=== PATIENT | male | born 1935 | race Caucasian/White ===

== ENCOUNTER → 2016-05-20 | Outpatient (CLI) | payer MEDICARE ==
[~2016-05-20] MED LIST: AMLODIPINE BESY10 MG PO; CETIRIZINE HCL10 MG PO; CIPRO PO; FLOMAX0.4 M1 PO; FLONASE 0.05% N16 GM; HYTRIN1 M1 PO; LISINOPRIL PO; MOBIC15 MG PO; PROTONIX PO; ULTRAM PO
--- NOTE | ~2016-05-20 | CR7 ---
[facility] A Service of [facility] RADIOLOGY TEXT RESULTS PATIENT: DEBBY VIEIRA JR LOCATION: [facility] : 35 UNIT #: [id number] AGE: [address]: Deon Jacinto MD SEX: M ORDER DR: [id number] [facility] [address] [place], [place] [address] [id number] O MR#: [id number] Acc #: [id number] NAME: DEBBY VIEIRA : 1935 SEX: M STUDY DATE/TIME: 05/20/2016 11:24 UNIT: [facility] ROOM: STUDY DESCRIPTION: CR Abdomen Single AP View Attending Physician: Deon Jacinto M.D. Referring Physician: Deon Jacinto M.D. Ordering Physician: Deon Jacinto M.D. Primary Care Physician: Tracy Elizabeth A.P.R.N. MEDICAL IMAGING REPORT This report is preliminary unless electronic signature is present EXAM AP abdomen DATE 05/20/2016 at 11:24 HISTORY Bilateral kidney stones and flank pain for 2 months. Previous lithotripsy. COMPARISON AP abdomen 04/14/[address] abdomen and pelvis without and with contrast 02/17/2016. FINDINGS Multiple (approximately 5) clustered calculi are seen in the vicinity of the right lower renal pole, varying in size between 4-9 mm. These are not thought to be significantly changed from 04/14/2016. No definite left kidney stone or bilateral ureteral stone is identified. Surgical clips in the pelvis to the right of midline. Degenerative disc, facet and endplate changes in the lower lumbar spine. Nonobstructive bowel gas pattern with [id number] ascending colonic stool burden. Cholecystectomy clips are in place. IMPRESSION 1. Multiple stones in the right lower renal pole are not thought to be significantly changed from 04/14/2016. No ureteral calculi are identified. Dictated by... Cecilia Sandy M.D. THIS IS AN ELECTRONICALLY VERIFIED REPORT [facility] A Service of [facility] RADIOLOGY TEXT RESULTS PATIENT: DEBBY VIEIRA JR [id number] : 35 UNIT #: [id number] AGE: [address]: Deon Jacinto MD SEX: M ORDER DR: Cecilia Sandy M.D. at 05/21/2016 9:14 AM SHMUEL/enedina TD: 05/20/2016 19:30 JOB #: [id number] MEDICAL IMAGING REPORT COPY
== END | disposition home or self-care (01) ==
LOC: CRAD 11:09
DX: N20.0 Calculus of kidney (principal)
CPT/HCPCS: 74000

== ENCOUNTER → 2016-07-08 | Outpatient (CLI) | payer MEDICARE ==
--- NOTE | ~2016-07-08 | CR7 ---
[facility] A Service of [facility] RADIOLOGY TEXT RESULTS PATIENT: DEBBY VIEIRA JR LOCATION: [facility] : 35 UNIT #: [id number] AGE: [address]: Deon Jacinto MD SEX: M ORDER DR: [id number] [facility] [address] [place], [place] [address] [id number] O MR#: [id number] Acc #: [id number] NAME: DEBBY VIEIRA : 1935 SEX: M STUDY DATE/TIME: 07/08/2016 8:54 UNIT: [facility] ROOM: STUDY DESCRIPTION: CR Abdomen Single AP View Attending Physician: Deon Jacinto M.D. Referring Physician: Deon Jacinto M.D. Ordering Physician: Deon Jacinto M.D. Primary Care Physician: Tracy Elizabeth A.P.R.N. MEDICAL IMAGING REPORT This report is preliminary unless electronic signature is present EXAM Abdominal radiograph INDICATION Generalized abdominal pain for the past 2-3 months. History of renal calculi. Previous history of lithotripsy. PROCEDURE Supine views of the abdomen. COMPARISON 05/20/2016. FINDINGS There is a 7 mm calculus in the expected region of the mid to lower right kidney. It is similar to the previous study. The other previously shown calculi may be present but are much more subtle. No visible calculus along the course of the ureters or in the bladder. IMPRESSION Calculi in the region of the mid to lower right kidney appear very similar to 05/20/2016. Some the calculi are more subtle than on the prior. Dictated by... Phu Bruce M.D. THIS IS AN ELECTRONICALLY VERIFIED REPORT Phu Bruce M.D. at 07/09/2016 2:17 PM IVETT/ashwini TD: 07/08/2016 12:07 [facility] A Service [facility] RADIOLOGY TEXT RESULTS PATIENT: DEBBY VIEIRA JR LOCATION: [facility] #: [id number] : 35 UNIT #: [id number] AGE: [address]: Deon Jacinto MD SEX: M ORDER DR: JOB #: [id number] MEDICAL IMAGING REPORT Page 1 of 1 COPY
== END | disposition home or self-care (01) ==
LOC: CRAD 08:51
DX: N20.0 Calculus of kidney (principal)
CPT/HCPCS: 74000